=== PATIENT | male | born 1980 | race Caucasian/White ===

== ENCOUNTER 2020-03-09 06:06 | Emergency (ER) | payer MEDICAID ==
[~2020-03-09] VITALS: Ht 175.3 cm; Wt 68.2 kg
[2020-03-09 06:08] VITALS: Ht 175.3 cm; Wt 68.2 kg
[2020-03-09] MEDS ORDERED: CLINDAMYCIN HC300 MG PO (06:17)
[2020-03-09] MEDS ORDERED: TYLENOL W/CODEI1 TAB PO (06:17)
[2020-03-09 06:55] VITALS: BP 148/94
== END 2020-03-09 06:57 | disposition home or self-care (01) ==
LOC: D.ER 06:06
DX: K08.89 Other specified disorders of teeth and supporting structures (principal); K05.10 Chronic gingivitis, plaque induced